=== PATIENT | male | born 1980 | race Caucasian/White ===

== ENCOUNTER 2017-06-08 20:17 | Emergency (ER) | payer MEDICAID ==
[2017-06-08] MEDS ORDERED: Dexamethasone 10 MG/ML VIAL ONE (20:39)
== END 2017-06-08 21:07 | disposition home or self-care (01) ==
LOC: MADERS 20:17
DX: T63.441A Toxic effect of venom of bees, accidental (unintentional), initial encounter (principal); K21.9 Gastro-esophageal reflux disease without esophagitis; F32.9 Major depressive disorder, single episode, unspecified; Z79.899 Other long term (current) drug therapy
CPT/HCPCS: 96372; J1100

== ENCOUNTER 2017-12-05 10:26 | Outpatient (CLI) | payer MEDICAID ==
--- NOTE | 2017-12-05 11:35 | RAD ---
LUMBAR SPINE THREE VIEWS: History: Back pain. FINDINGS/IMPRESSION: There are mild degenerative changes of the lumbar spine. No fracture, subluxation, or bony destructio n is identified. POS: THERESE
== END 2017-12-05 10:27 | disposition home or self-care (01) ==
LOC: MADLABBHPM 10:26
PROVIDERS: ATTEND Family Medicine
DX: M54.5 Low back pain (principal); N50.89 Other specified disorders of the male genital organs; M47.816 Spondylosis without myelopathy or radiculopathy, lumbar region
CPT/HCPCS: 72100; 87252

== ENCOUNTER 2019-06-11 18:39 | Emergency (ER) | payer BC, OTHER | END 2019-06-11 19:39 | disposition home or self-care (01) | LOC: MADERS 18:39 | DX: S00.86XA Insect bite (nonvenomous) of other part of head, initial encounter (principal); K21.9 Gastro-esophageal reflux disease without esophagitis; F41.9 Anxiety disorder, unspecified; F32.9 Major depressive disorder, single episode, unspecified; W57.XXXA Bitten or stung by nonvenomous insect and other nonvenomous arthropods, initial encounter | CPT/HCPCS: 99281 ==

== ENCOUNTER 2019-07-22 09:48 | Outpatient (CLI) | payer BC ==
--- NOTE | 2019-07-22 10:09 | RAD ---
EXAM: 3 views of the right wrist HISTORY: Wrist pain for one month COMPARISON: None FINDINGS: 3 views of the right wrist shows no evidence of acute fracture or dislocation. No soft tiss ue swelling is seen. No degenerative changes are present. IMPRESSION: No evidence of acute osseous abnormality.
== END 2019-07-22 09:49 | disposition home or self-care (01) ==
LOC: MADRAD 09:48
PROVIDERS: ATTEND Family Medicine
DX: M25.531 Pain in right wrist (principal)

== ENCOUNTER 2019-08-02 00:07 | Emergency (ER) | payer BC, OTHER ==
[2019-08-02] MEDS ORDERED: Ibuprofen 800 MG TAB ONE (00:45)
[2019-08-02] MEDS ORDERED: Benzonatate 100 MG CAP ONE (00:45)
== END 2019-08-02 01:05 | disposition home or self-care (01) ==
LOC: MADERS 00:07
DX: U07.1 COVID-19 (principal); R50.9 Fever, unspecified; R05 Cough; K21.9 Gastro-esophageal reflux disease without esophagitis; F41.9 Anxiety disorder, unspecified; F17.220 Nicotine dependence, chewing tobacco, uncomplicated
CPT/HCPCS: 87635; 99283; U0003

== ENCOUNTER 2020-01-22 17:38 | Emergency (ER) | payer BC ==
[2020-01-22] MEDS ORDERED: Ibuprofen 800 MG TAB ONE (18:50)
[2020-01-22] MEDS ORDERED: Acetaminophen 500 MG TAB ONE (18:50)
[2020-01-22] MEDS ORDERED: Amoxicillin/Potassium Clav 875 MG TAB ONE (19:31)
[2020-01-23 20:15] LABS: SARS-CoV-2 MS2 Positive; SARS-CoV-2 N Gene Negative; SARS-CoV-2 S Gene Negative; SARS-CoV-2 by NAA Not Detected (NotDetected); SARS-CoV-2 orf1ab Negative
== END 2020-01-22 19:39 | disposition home or self-care (01) ==
LOC: MADERS 17:38
DX: J01.90 Acute sinusitis, unspecified (principal); Z20.828 Contact with and (suspected) exposure to other viral communicable diseases; K21.9 Gastro-esophageal reflux disease without esophagitis; F17.220 Nicotine dependence, chewing tobacco, uncomplicated
CPT/HCPCS: 87635; 87804; 99283; U0003

== ENCOUNTER 2020-06-16 18:16 | Emergency (ER) | payer BC ==
[2020-06-16] MEDS ORDERED: Morphine 10 MG/ML VIAL ONE (19:28)
[2020-06-16] MEDS ORDERED: methylPREDNISolone Sod Succ/PF 125 MG/2 ML VIAL ONE (19:28)
[2020-06-16] MEDS ORDERED: Amoxicillin/Potassium Clav 500 MG TAB ONE (19:54)
[2020-06-16] MEDS ORDERED: Amoxicillin/Potassium Clav 875 MG TAB ONE (19:55)
== END 2020-06-16 20:05 | disposition home or self-care (01) ==
LOC: MADERS 18:16
DX: H66.93 Otitis media, unspecified, bilateral (principal); R09.81 Nasal congestion; K21.9 Gastro-esophageal reflux disease without esophagitis; F17.220 Nicotine dependence, chewing tobacco, uncomplicated; J30.2 Other seasonal allergic rhinitis
CPT/HCPCS: 96372; 99283; J2270; J2930

== ENCOUNTER 2020-09-08 14:31 | Emergency (ER) | payer OTHER, BC ==
[2020-09-08] MEDS ORDERED: Ibuprofen 800 MG TAB ONE (14:54)
== END 2020-09-08 15:35 | disposition home or self-care (01) ==
LOC: MADERS 14:31
DX: S92.411A Displaced fracture of proximal phalanx of right great toe, initial encounter for closed fracture (principal); K21.9 Gastro-esophageal reflux disease without esophagitis; F17.220 Nicotine dependence, chewing tobacco, uncomplicated; W19.XXXA Unspecified fall, initial encounter

== ENCOUNTER 2021-01-21 16:23 | Outpatient (CLI) | payer BC | END 2021-01-21 16:24 | disposition home or self-care (01) | LOC: MADRAD 16:23 | PROVIDERS: ATTEND Family Medicine | DX: R05.3 Chronic cough (principal) | CPT/HCPCS: 71046 ==

== ENCOUNTER 2021-08-15 20:05 | Emergency (ER) | payer BC ==
[2021-08-15] MEDS ORDERED: HYDROcodone/Acetaminophen 5/325 mg Tablet ONE (22:12)
[2021-08-15] MEDS ORDERED: Ibuprofen 800 MG TAB ONE (22:27)
[2021-08-15] MEDS ORDERED: Boostrix 0.5 ML (Tdap) VIAL ONE (22:27)
== END 2021-08-15 22:55 | disposition home or self-care (01) ==
LOC: EEVIPCON 20:05 → MADERS 20:05
DX: S90.31XA Contusion of right foot, initial encounter (principal); K21.9 Gastro-esophageal reflux disease without esophagitis; F17.220 Nicotine dependence, chewing tobacco, uncomplicated; X58.XXXA Exposure to other specified factors, initial encounter
CPT/HCPCS: 90471; 90715

== ENCOUNTER 2021-08-22 12:21 | Outpatient (CLI) | payer BC | END 2021-08-22 12:22 | disposition home or self-care (01) | LOC: MADRAD 12:21 | PROVIDERS: ATTEND Family Medicine | DX: S90.31XA Contusion of right foot, initial encounter (principal) ==

== ENCOUNTER 2021-10-20 20:52 | Emergency (ER) | payer BC | END 2021-10-20 22:21 | disposition home or self-care (01) | LOC: MADERS 20:52 | DX: S91.311A Laceration without foreign body, right foot, initial encounter (principal); K21.9 Gastro-esophageal reflux disease without esophagitis; F17.290 Nicotine dependence, other tobacco product, uncomplicated; W26.8XXA Contact with other sharp object(s), not elsewhere classified, initial encounter | CPT/HCPCS: 12002 ==

== ENCOUNTER 2021-12-24 06:37 | Emergency (ER) | payer BC ==
[2021-12-24] MEDS ORDERED: Dexamethasone 10 MG/ML VIAL ONE (07:25)
[2021-12-24] MEDS ORDERED: Acetaminophen 500 MG TAB ONE (07:25)
[2021-12-24 07:44] LABS: Bilirubin Negative (Negative); Blood, Urine Negative (Negative); Clarity Clear (Clear); Glucose, Urine (Dipstick) Negative (Negative); Ketone, Urine Trace mg/dL (Negative); Leukocyte Negative (Negative); Nitrite Negative (Negative); Protein, Urine (Dipstick) Negative (Neg-Trace); Urobilinogen 0.2 mg/dL (Less than 2); pH, Urine 5.5 (5.0-9.0)
[2021-12-24 07:47] LABS: Specific Gravity, Urine 1.037 (1.002-1.036)
[2021-12-24] MEDS ORDERED: Cyclobenzaprine 10 MG TAB ONE (08:09)
== END 2021-12-24 08:11 | disposition home or self-care (01) ==
LOC: MADERS 06:37
DX: S39.012A Strain of muscle, fascia and tendon of lower back, initial encounter (principal); E66.9 Obesity, unspecified; K21.9 Gastro-esophageal reflux disease without esophagitis; F17.290 Nicotine dependence, other tobacco product, uncomplicated; X58.XXXA Exposure to other specified factors, initial encounter
CPT/HCPCS: 81003; 99283; J1100

== ENCOUNTER 2022-02-01 21:58 | Emergency (ER) | payer BC ==
[2022-02-01 22:44] LABS: #Basophils 0.1 thou/uL (0.0-0.2); #Eosinphils 0.4 thou/uL (0.0-0.7); #Lymphocytes 2.8 thou/uL (1.20-3.40); #Monocytes 0.6 thou/uL (0.11-0.59); #Neutrophils 4.6 thou/uL (1.40-6.50); %Basophils 1.3 % (0.0-1.0); %Eosinophils 4.9 % (0.0-10.0); %Monocytes 6.8 % (0.0-10.0); Hemoglobin 15.8 g/dL (14.0-18.0); Mean Corpuscular HGB CONC 34.1 g/dL (32.0-36.0); Mean Corpuscular Hemoglobin 29.5 pg (27.0-31.0); Mean Corpuscular Volume 86.6 fl (78.0-98.0); Mean Platelet Volume 6.7 fL (7.4-10.4); Platelet Count 363 10x3/uL (130-400); RBC Distribution Width 11.8 % (11.5-14.5); Red Blood Cell (RBC) Count 5.37 mill/uL (4.70-6.10); White Blood Cell (WBC) Count 8.6 10x3/uL (4.8-10.8)
[2022-02-01 23:04] LABS: ALT (SGPT) 44 U/L (8-55); AST (SGOT) 27 U/L (5-34); Albumin 4.5 g/dL (3.5-5.0); Alkaline Phosphatase 69 U/L (40-110); Anion Gap 15 mmol/L (10-20); BUN (Urea Nitrogen) 18 mg/dL (8.9-20.6); Bilirubin, Total 0.6 mg/dL (0.2-1.2); Calc. Creatinine Clearance 0 mL/min (70-130); Calcium 9.3 mg/dL (7.8-10.44); Carbon Dioxide 22 mmol/L (22-29); Chloride 107 mmol/L (98-107); Estimated GFR 71; Globulin 3.8 g/dL (2.4-3.5); Glucose 94 mg/dL (70-105); Magnesium 2.1 mg/dL (1.6-2.6); Potassium 3.7 mmol/L (3.5-5.1); Protein, Total 8.3 g/dL (6.0-8.3); Sodium 140 mmol/L (136-145)
[2022-02-01 23:08] LABS: Acetaminophen Less than 10.0 mcg/mL (10.0-30.0); Alcohol Less than 10 mg/dL (Less than 10); Salicylate Less than 8.0 mg/dL (15.0-30.0)
[2022-02-02 00:34] LABS: Amphetamine Not Detected (NotDetected); Barbiturates Screen Not Detected (NotDetected); Benzodiazepine Screen Not Detected (NotDetected); Cocaine Metabolite Screen Not Detected (NotDetected); Medtox Control Line Valid? VALID (VALID); Methadone Not Detected (NotDetected); Methamphetamine Not Detected (NotDetected); Opiate Screen Not Detected (NotDetected); Oxycodone Screen Not Detected (NotDetected); Phencyclidine (PCP) Not Detected (NotDetected); THC/Cannabinoid Screen Not Detected (NotDetected); Tricyclic Screen Not Detected (NotDetected)
[2022-02-02 01:47] LABS: Troponin I Less than 0.010 ng/mL (< 0.028)
== END 2022-02-02 01:58 | disposition home or self-care (01) ==
LOC: MADERS 21:58
DX: R20.2 Paresthesia of skin (principal); R53.1 Weakness; F17.220 Nicotine dependence, chewing tobacco, uncomplicated
CPT/HCPCS: 36416; 70450; 71045; 80053; 80306; 80307; 83605; 83735; 83880; 84484; 85025; 93005

== ENCOUNTER 2023-08-06 00:17 | Emergency (ER) | payer BC ==
[2023-08-06 01:45] LABS: #Basophils 0.1 thou/uL (0.0-0.2); #Eosinphils 0.6 thou/uL (0.0-0.7); #Lymphocytes 2.2 thou/uL (1.20-3.40); #Monocytes 0.7 thou/uL (0.11-0.59); #Neutrophils 5.6 thou/uL (1.40-6.50); %Basophils 0.8 % (0.0-1.0); %Eosinophils 6.1 % (0.0-10.0); %Lymphocytes 23.7 % (21.0-51.0); %Monocytes 8.1 % (0.0-10.0); %Neutrophils 61.2 % (42.0-75.0); Hematocrit 45.1 % (42.0-52.0); Hemoglobin 14.2 g/dL (14.0-18.0); Mean Corpuscular HGB CONC 31.5 g/dL (32.0-36.0); Mean Corpuscular Hemoglobin 28.2 pg (27.0-31.0); Mean Corpuscular Volume 89.5 fl (78.0-98.0); Mean Platelet Volume 6.3 fL (7.4-10.4); Platelet Count 277 10x3/uL (130-400); RBC Distribution Width 12.4 % (11.5-14.5); Red Blood Cell (RBC) Count 5.03 mill/uL (4.70-6.10); White Blood Cell (WBC) Count 9.1 10x3/uL (4.8-10.8)
[2023-08-06 02:06] LABS: Troponin I Less than 0.010 ng/mL (< 0.028)
[2023-08-06 02:10] LABS: ALT (SGPT) 47 U/L (8-55); AST (SGOT) 30 U/L (5-34); Alkaline Phosphatase 69 U/L (40-110); Anion Gap 17 mmol/L (10-20); BUN (Urea Nitrogen) 16 mg/dL (8.9-20.6); Bilirubin, Total 0.5 mg/dL (0.2-1.2); CK (CPK) 113 U/L (30-200); Calc. Creatinine Clearance 0 mL/min (70-130); Calcium 8.8 mg/dL (7.8-10.44); Carbon Dioxide 20 mmol/L (22-29); Chloride 108 mmol/L (98-107); Estimated GFR 77; Globulin 3.3 g/dL (2.4-3.5); Glucose 110 mg/dL (70-105); Protein, Total 7.3 g/dL (6.0-8.3); Sodium 141 mmol/L (136-145)
== END 2023-08-06 02:22 | disposition home or self-care (01) ==
LOC: MADERS 00:17
DX: T67.5XXA Heat exhaustion, unspecified, initial encounter (principal); E86.0 Dehydration; K21.9 Gastro-esophageal reflux disease without esophagitis
CPT/HCPCS: 36415; 71045; 80053; 82550; 83735; 83880; 84484; 85025; 93005; 96360

== ENCOUNTER 2023-08-31 22:50 | Emergency (ER) | payer BC ==
[2023-08-31] MEDS ORDERED: Dexamethasone 10 MG/ML VIAL ONE (23:35)
== END 2023-09-01 | disposition home or self-care (01) ==
LOC: MADERS 22:50
DX: J01.90 Acute sinusitis, unspecified (principal); H66.93 Otitis media, unspecified, bilateral; H60.91 Unspecified otitis externa, right ear; F17.220 Nicotine dependence, chewing tobacco, uncomplicated
CPT/HCPCS: 71046; 96372; J1100